=== PATIENT | male | born 1985 | race Caucasian/White ===

== ENCOUNTER 2024-06-20 14:09 | Emergency (ER) | payer SELFPAY ==
--- OUTSIDE RECORDS SUMMARY | 2024-06-20 14:11 | XMS_ITS | Patient Health Summary ---
Author Organization [facility] Address [address] [place] [address] Care Team Providers Care Vp Outcomes Name Role Phone Unavailable Primary Care Provider Unavailabl e Note from [facility] [place],non-owned Affiliates and Associated Physician Practices is amultiple site organization consisting of ambulatory clinics and hospital sitesin [place], [place], [place] and [place]. This disclosure is being madepursuant to the Care Everywhere program and may not contain all information available regarding this patient. Last updated 18.[facility] Allergies * Cefaclor(Swelling) Medications * Be aware that medications may not be up to date on this document. Alwaysverify current medications with the patient. * indomethacin (INDOCIN) 25 MG capsule(Started 07/25/2020) Take 1 (one) capsule by mouth 3 times daily as needed for Pain (w/ food) Social History Tobacco Use Types Packs/Day Years Used Date Smoking Tobacco: Every Day Smokeless Tobacco: Never Alcohol Use Standard Drinks/Week Comments Never 0 (1 standard drink = 0.6 oz pur e alcohol) AUDIT-C Answer Date Recorded Q1: How often do you have a drink containing alc ohol? Never 07/25/2020 Average Number of Drinks Not on file 021 Frequency of Binge Drinking Not on file 11/2020 Sex and Gender Information Value Date Recorded Sex Assigned at Not on file Gender Identity Not on file Sexual Orientation Not on file Last Filed Vital Signs Vital Sign Reading Time Taken Comments Blood Pressure 130/74 07/25/2020 11:11 AM INFORMATION SECURITY SPECIALIST Pulse 89 07/25/2020 9:59 AM INFORMATION SECURITY SPECIALIST Temperature 36.6 ??C (97.8 ??F) 07/25/2020 9:59 AM CS T Respiratory Rate 20 07/25/2020 9:59 AM INFORMATION SECURITY SPECIALIST Oxygen Saturation 98% 07/25/2020 11:11 AM INFORMATION SECURITY SPECIALIST Inhaled Oxygen Concentration 100% 07/25/2020 9 :59 AM INFORMATION SECURITY SPECIALIST Weight 95.3 kg (210 lb) 07/25/2020 9:59 AM INFORMATION SECURITY SPECIALIST Height 185.4 cm (6' 1 ) 07/25/2020 9:59 AM INFORMATION SECURITY SPECIALIST Body Mass Index 27.71 07/25/2020 9:59 AM INFORMATION SECURITY SPECIALIST
--- OUTSIDE RECORDS SUMMARY | 2024-06-20 14:11 | XMS_ITS | Clinical Summary ---
Author Organization [facility] Address [address] [place] [address] Care Team Providers Care Assistant Professor Nurse Education Name Role Phone Unavailable Primary Care Provider Unavailabl e Source Comments [facility],non-owned Affiliates and Associated Physician Practices is amultiple site organization consisting of ambulatory clinics and hospital sitesin [place], [place], [place] and [place]. This disclosure is being madepursuant to the Care Everywhere program and may not contain all information available regarding this patient. Last updated 18.[facility] Allergies Active Allergy Reactions Criticality Noted Date Comments Cefaclor Swelling 07/25/2020 Medications * Be aware that medications may not be up to date on this document. Alwaysverify current medications with the patient. Medication Sig Dispensed Refills Start Date End Date Status indomethacin (INDOCIN) 25 MG capsule Take 1 (one) capsule by mouth 3 times daily as needed for Pain (w/ food) 15 capsule 07/25/2020 Active Social History Tobacco Use Types Packs/Day Years [...] Comments Blood Pressure 130/74 07/25/2020 11:11 AM AFLOAT CRYPTOLOGIC MANAGER Pulse 89 07/25/2020 9:59 AM AFLOAT CRYPTOLOGIC MANAGER Temperature 36.6 ??C (97.8 ??F) 07/25/2020 9:59 AM CS T Respiratory Rate 20 07/25/2020 9:59 AM AFLOAT CRYPTOLOGIC MANAGER Oxygen Saturation 98% 07/25/2020 11:11 AM AFLOAT CRYPTOLOGIC MANAGER Inhaled Oxygen Concentration 100% 07/25/2020 9 :59 AM AFLOAT CRYPTOLOGIC MANAGER Weight 95.3 kg (210 lb) 07/25/2020 9:59 AM AFLOAT CRYPTOLOGIC MANAGER Height 185.4 cm (6' 1 ) 07/25/2020 9:59 AM AFLOAT CRYPTOLOGIC MANAGER Body Mass Index 27.71 07/25/2020 9:59 AM AFLOAT CRYPTOLOGIC MANAGER Plan of Treatment Health Maintenance Due Date Last Done Comments HIV SCREENING 11/23/2002 HEPATITIS C SCREENING 11/19/2005 DTAP/TDAP/TD VACCINES (1 - Tdap) 11/23/2006 HEPATITIS B VACCINE (1 of 3 - 19+ 3-dose series) 11/23/2006 PNEUMOCOCCAL VACCINE (1 of 2 - PCV) 11/23/2006 COVID-19 VACCINE (1 - 2023-2 5 season) 2024 INFLUENZA VACCINE (#1) 2024 DEPRESSION SCREENING 05/21/2024 ZOSTER VACCINE (1 of 2) 11/23/2037 HIB VACCINE Aged Out No longer eligi ble based on patient's age to complete this topic HPV VACCINE Aged Out No longer eligi ble based on patient's age to complete this topic MENINGOCOCCAL (Group B) VACCINE Aged Out No longer eligible based on patient's age to complete this topic MENINGOCOCCAL VACCINE Aged Out No maryann kyle eligible based on patient's age to complete this topic
--- OUTSIDE RECORDS SUMMARY | 2024-06-20 14:11 | XMS_ITS | Referral Summary ---
Author Organization [facility] Address [address] [place] [address] Care Team Providers Care Punch Machine Hand Name Role Phone Unavailable Primary Care Provider Unavailabl e Source Comments [facility],non-owned Affiliates and Associated Physician Practices is amultiple site organization consisting of ambulatory clinics and hospital sitesin [place], [place], [place] and [place]. This disclosure is being madepursuant to the Care Everywhere program and may not contain all information available regarding this patient. Last updated 18.[facility] Allergies Active Allergy Reactions Criticality Noted Date [...] Comments Blood Pressure 130/74 07/25/2020 11:11 AM CAFETERIA CASHIER Pulse 89 07/25/2020 9:59 AM CAFETERIA CASHIER Temperature 36.6 ??C (97.8 ??F) 07/25/2020 9:59 AM CS T Respiratory Rate 20 07/25/2020 9:59 AM CAFETERIA CASHIER Oxygen Saturation 98% 07/25/2020 11:11 AM CAFETERIA CASHIER Inhaled Oxygen Concentration 100% 07/25/2020 9 :59 AM CAFETERIA CASHIER Weight 95.3 kg (210 lb) 07/25/2020 9:59 AM CAFETERIA CASHIER Height 185.4 cm (6' 1 ) 07/25/2020 9:59 AM CAFETERIA CASHIER Body Mass Index 27.71 07/25/2020 9:59 AM CAFETERIA CASHIER Plan of Treatment Not on file
--- OUTSIDE RECORDS SUMMARY | 2024-06-20 15:30 | XMS_ITS | Clinical Summary ---
Author Organization [facility] Address [address] [place] [address] Care Team Providers Care Speedometer Mechanic Name Role Phone Unavailable Primary Care Provider Unavailabl e Source Comments [facility],non-owned Affiliates and Associated Physician Practices is amultiple site organization consisting of ambulatory clinics and hospital sitesin [place], [place], [place] and [place]. This disclosure is being madepursuant to the Care Everywhere program and may not contain all information available regarding this patient. Last updated 18.[facility] Allergies Active Allergy Reactions Criticality Noted Date [...] Comments Blood Pressure 130/74 07/25/2020 11:11 AM ENGINE DISPATCHER Pulse 89 07/25/2020 9:59 AM ENGINE DISPATCHER Temperature 36.6 ??C (97.8 ??F) 07/25/2020 9:59 AM CS T Respiratory Rate 20 07/25/2020 9:59 AM ENGINE DISPATCHER Oxygen Saturation 98% 07/25/2020 11:11 AM ENGINE DISPATCHER Inhaled Oxygen Concentration 100% 07/25/2020 9 :59 AM ENGINE DISPATCHER Weight 95.3 kg (210 lb) 07/25/2020 9:59 AM ENGINE DISPATCHER Height 185.4 cm (6' 1 ) 07/25/2020 9:59 AM ENGINE DISPATCHER Body Mass Index 27.71 07/25/2020 9:59 AM ENGINE DISPATCHER Plan of Treatment Health Maintenance Due Date [...]
--- OUTSIDE RECORDS SUMMARY | 2024-06-20 15:30 | XMS_ITS | Patient Health Summary ---
Author Organization [facility] Address [address] [place] [address] Care Team Providers Care Lunchroom Food Service Supervisor Name Role Phone Unavailable Primary Care Provider Unavailabl e Note from [facility],non-owned Affiliates and Associated Physician Practices is amultiple site organization consisting of ambulatory clinics and hospital sitesin [place], [place], [place] and [place]. This disclosure is being madepursuant to the Care Everywhere program and may not contain all information available regarding this patient. Last updated 18.[facility] Allergies * Cefaclor(Swelling) Medications * Be aware [...] Comments Blood Pressure 130/74 07/25/2020 11:11 AM CIRCULATION WORKER Pulse 89 07/25/2020 9:59 AM CIRCULATION WORKER Temperature 36.6 ??C (97.8 ??F) 07/25/2020 9:59 AM CS T Respiratory Rate 20 07/25/2020 9:59 AM CIRCULATION WORKER Oxygen Saturation 98% 07/25/2020 11:11 AM CIRCULATION WORKER Inhaled Oxygen Concentration 100% 07/25/2020 9 :59 AM CIRCULATION WORKER Weight 95.3 kg (210 lb) 07/25/2020 9:59 AM CIRCULATION WORKER Height 185.4 cm (6' 1 ) 07/25/2020 9:59 AM CIRCULATION WORKER Body Mass Index 27.71 07/25/2020 9:59 AM CIRCULATION WORKER
--- OUTSIDE RECORDS SUMMARY | 2024-06-20 15:30 | XMS_ITS | Referral Summary ---
Author Organization [facility] Address [address] [place] [address] Care Team Providers Care Route Cdl Driver Name Role Phone Unavailable Primary Care Provider Unavailabl e Source Comments [facility],non-owned Affiliates and Associated Physician Practices is amultiple site organization consisting of ambulatory clinics and hospital sitesin [place], [place], [place] and [place]. This disclosure is being madepursuant to the Care Everywhere program and may not contain all information available regarding this patient. Last updated 18.[facility] Allergies Active Allergy Reactions Criticality Noted Date [...] Comments Blood Pressure 130/74 07/25/2020 11:11 AM SALES PROJECT MANAGER Pulse 89 07/25/2020 9:59 AM SALES PROJECT MANAGER Temperature 36.6 ??C (97.8 ??F) 07/25/2020 9:59 AM CS T Respiratory Rate 20 07/25/2020 9:59 AM SALES PROJECT MANAGER Oxygen Saturation 98% 07/25/2020 11:11 AM SALES PROJECT MANAGER Inhaled Oxygen Concentration 100% 07/25/2020 9 :59 AM SALES PROJECT MANAGER Weight 95.3 kg (210 lb) 07/25/2020 9:59 AM SALES PROJECT MANAGER Height 185.4 cm (6' 1 ) 07/25/2020 9:59 AM SALES PROJECT MANAGER Body Mass Index 27.71 07/25/2020 9:59 AM SALES PROJECT MANAGER Plan of Treatment Not on file
--- NOTE | 2024-06-20 15:43 | PC.NURSE ---
Pt. states he's leaving to go back to [facility]. Ride called for [facility]. Pt. seen walking out of door.
--- NOTE | 2024-06-20 16:12 | ED.NAVMDI ---
HPI - Nausea/Vomiting/Diarrhea General Chief complaint: Nausea/Vomiting/Diarrhea Stated complaint: N/V/D Time Seen by Provider: 06/20/24 16:12 Focused HPI: This is a 38 year old male that presents to the ER for nausea, vomiting. Ongoing since last night. Reports fever. Denies cough, sore throat. GENERAL: Well-appearing, well-nourished, and in no acute distress. HEAD: Normocephalic, atraumatic. CHEST: Clear to auscultation. ?No respiratory distress. HEART: Regular rate and rhythm.? NEURO: ?Alert and oriented x3. Patient screened in triage and initial orders placed.? ?Additional care and disposition to be based upon?diagnostic testing and treatment. Related Data Allergies Allergy/AdvReac Type Severity Reaction Status Date / Time cefaclor Allergy Mild Verified 08/09/09 19:18 Course Vital Signs Vital signs: Vital Signs Temperature 100.4 F H 06/20/24 16:18 Pulse Rate 98 06/20/24 16:18 Respiratory Rate 16 06/20/24 16:18 Blood Pressure 149/68 H 06/20/24 16:18 Pulse Oximetry 100 06/20/24 16:18 Oxygen Delivery Room Air 06/20/24 16:18 Temperature 100.4 F H 06/20/24 16:18 Pulse Rate 98 06/20/24 16:18 Respiratory Rate 16 06/20/24 16:18 Blood Pressure 149/68 H 06/20/24 16:18 Pulse Oximetry 100 06/20/24 16:18 Oxygen Delivery Room Air 06/20/24 16:18 MDM - Nausea/Vomiting/Diarrhea MDM Narrative Medical decision making narrative: Patient left after medical screening exam and before any further evaluation or management Discharge Plan Discharge Clinical Impression: Acute viral syndrome Patient Disposition: Elopement After Seen by Prov Condition: Stable Patient Language: Georgian Follow-up/Referrals: Jameson Payton MD [Primary Care Provider] -
[2024-06-20 16:18] VITALS: BP 149/68; PULSE 98; RESP 16; TEMP 38; O2SAT 100
--- NOTE | 2024-06-20 17:00 | PC.NURSE ---
Pt states he would like to leave d/t long wait time. [facility] called for ride for pt. by this RN.
== END 2024-06-20 17:29 | disposition left against medical advice (07) ==
PROVIDERS: Emergency Provider Physician Assistant; PCP Family Medicine
DX: B34.9 Viral infection, unspecified (principal)
CPT/HCPCS: 99281